=== PATIENT | female | born 1990 | race Caucasian/White ===

== ENCOUNTER 2022-08-17 08:24 | Outpatient (CLI) | payer BC, SELFPAY ==
[2022-08-17 10:46] LABS: Chlamydia DNA Amplified* NOT DETECTED (No Detected); GC DNA Amplified* NOT DETECTED (No Detected)
== END 2022-08-17 08:25 | disposition home or self-care (01) ==
LOC: NFLDREF 08:25
PROVIDERS: PCP Family Medicine; Visit Provider Obstetrics & Gynecology
DX: N89.8 Other specified noninflammatory disorders of vagina (principal); Z11.3 Encounter for screening for infections with a predominantly sexual mode of transmission
CPT/HCPCS: 87491; 87591

== ENCOUNTER 2024-05-28 08:37 | Outpatient (CLI) | payer BC, SELFPAY ==
[2024-05-31 05:48] LABS: HPV Source Cervix; HPV, High Risk by TMA Detected
[2024-05-31 17:53] LABS: HPV Genotype 16 by TMA Not Detected; HPV Genotype 18/45 by TMA Detected; HPV Reflex Billing Y; HPVG Source Cervix
== END 2024-05-28 08:38 | disposition home or self-care (01) ==
PROVIDERS: PCP Family Medicine; Visit Provider Physician Assistant
DX: Z12.4 Encounter for screening for malignant neoplasm of cervix (principal); Z13.220 Encounter for screening for lipoid disorders
CPT/HCPCS: 80061; 87624; 87625; 88141; 88142